=== PATIENT | female | born 1995 | race Hispanic/Latino ===

== ENCOUNTER 2023-02-13 06:35 | Day surgery (SDC) | payer OTHER ==
[2023-02-11 12:39] VITALS: BMI 23.3
[2023-02-13 08:35] LABS: Hematocrit 39.2 % (36.0-47.0)
[2023-02-13 08:42] LABS: BHCG - Serum Negative (NEGATIVE); Pregs Control Background? CLEAR/WHITE (CLR/WHITE); Pregs Control Bar Appear? YES (CONTROL BAR)
[2023-02-13] MEDS ORDERED: HYDROmorphone 0.5 MG/0.5 ML SYRINGE ONE (08:58)
[2023-02-13] MEDS ORDERED: fentaNYL PF 100 MCG/2 ML SYRINGE ONE ×2 (08:58→10:38)
[2023-02-13] MEDS ORDERED: Midazolam HCl 2 mg/2 ml Vial ONE (08:58)
[2023-02-13] MEDS ORDERED: Lidocaine 1% (PF) 30 ML VIAL ONE (09:00)
[2023-02-13] MEDS ORDERED: EPINEPHrine 1 MG/ML AMP ONE (09:00)
[2023-02-13] MEDS ORDERED: PROPOFOL 200 MG/20 ML VIAL ONE (09:20)
[2023-02-13] MEDS ORDERED: Ondansetron PF 4 MG/2 ML Vial ONE (09:20)
[2023-02-13] MEDS ORDERED: Lidocaine 1% PF 5 ML VIAL ONE (09:20)
[2023-02-13] MEDS ORDERED: Dexamethasone 20 MG/5 ML VIAL ONE (09:20)
[2023-02-13] MEDS ORDERED: Promethazine HCl 25 MG/ML VIAL ONE (11:07)
[2023-02-13] MEDS ORDERED: fentaNYL 50 mcg/mL 1 mL Vial ONE (11:48)
== END 2023-02-13 14:10 | disposition home or self-care (01) ==
LOC: SDC 06:35
PROVIDERS: ATTEND Otolaryngology Plastic Surgery within the Head & Neck
PROC: 07B Lymphatic and Hemic Systems, Excision (ICD-10-PCS; principal; 2023-02-13)
DX: D11.7 Benign neoplasm of other major salivary glands (principal); J45.909 Unspecified asthma, uncomplicated; K25.9 Gastric ulcer, unspecified as acute or chronic, without hemorrhage or perforation; F32.A Depression, unspecified; F41.9 Anxiety disorder, unspecified; Z90.89 Acquired absence of other organs; Z88.0 Allergy status to penicillin
CPT/HCPCS: 84703; 85014; 88307; J0171; J1100; J1170; J2001; J2250; J2405; J2550; J2704; J3010